=== PATIENT | male | born 1945 | race Two or more races ===

== ENCOUNTER 2022-10-17 14:24 | Inpatient (IN) | payer OTHER ==
[~2022-10-17] VITALS: Ht 162.6 cm; Wt 89.4 kg
[2022-10-17] MEDS ORDERED: GLUMETZA500 MG PO (15:00)
--- NOTE | 2022-10-17 15:00 | NUR ---
SE RECIBE PTE MASCULINO DE 77 ANOS DE EDAD, ALERTA Y ORIENTADO X3 EN COMPANIA DE KEBEDE HIJA QUIEN REFIERE PTE VIENE CON REFERIDO DE INTERNISTA DR.ARCALA TUTTLE QUIEN REFIERE A PTE POR CHF ENTRE OTRAS CONDICIONES DE JOHN PARA EVALUACION, SE HACE EKG Y SE PRESENTA A . SE OBSERVAN AMBAS PIERNAS CON EDEMA.
--- NOTE | 2022-10-17 17:37 | NUR ---
PTE EVALUADO POR DR. AGUILAR SE EJECUTA ORDEN MEDICA Y SE ЮЛИЯ MUESTRA BAJO MEDIDAS ASEPTICAS, SE OREINTA PTE SOBRE TRATAMIENTO PTE REFIERE EMTENDER
== END 2022-10-24 16:04 | disposition home or self-care (01) | DRG 291 ==
LOC: ER 14:24 → MEDI 23:03 → SEC-K 23:03 → MEDJ 23:03 → SEC-K 10-18 05:00 → MEDI 10-18 08:39 → MEDJ 10-23 07:32
PROVIDERS: ADMIT Internal Medicine; ATTEND Internal Medicine
PROC: 4A12X4Z Monitoring of Cardiac Electrical Activity, External Approach (ICD-10-PCS; 2022-10-17)
PROC: 3E0F7SF Introduction of Other Gas into Respiratory Tract, Via Natural or Artificial Opening (ICD-10-PCS; 2022-10-17)
PROC: 3E0F7GC Introduction of Other Therapeutic Substance into Respiratory Tract, Via Natural or Artificial Opening (ICD-10-PCS; 2022-10-17)
PROC: B246ZZZ Ultrasonography of Right and Left Heart (ICD-10-PCS; principal; 2022-10-18)
PROC: BB24ZZZ Computerized Tomography (CT Scan) of Bilateral Lungs (ICD-10-PCS; 2022-10-18)
PROC: BW40ZZZ Ultrasonography of Abdomen (ICD-10-PCS; 2022-10-19)
PROC: 8E0ZXY6 Isolation (ICD-10-PCS; 2022-10-23)
DX: I13.0 Hypertensive heart and chronic kidney disease with heart failure and stage 1 through stage 4 chronic kidney disease, or unspecified chronic kidney disease (principal); I50.23 Acute on chronic systolic (congestive) heart failure; J91.8 Pleural effusion in other conditions classified elsewhere; I31.39 Other pericardial effusion (noninflammatory); N17.8 Other acute kidney failure; L97.819 Non-pressure chronic ulcer of other part of right lower leg with unspecified severity; L03.115 Cellulitis of right lower limb; I42.8 Other cardiomyopathies; E11.628 Type 2 diabetes mellitus with other skin complications; E11.51 Type 2 diabetes mellitus with diabetic peripheral angiopathy without gangrene; E11.22 Type 2 diabetes mellitus with diabetic chronic kidney disease; E11.65 Type 2 diabetes mellitus with hyperglycemia; I25.10 Atherosclerotic heart disease of native coronary artery without angina pectoris; I34.0 Nonrheumatic mitral (valve) insufficiency; N18.9 Chronic kidney disease, unspecified; B96.5 Pseudomonas (aeruginosa) (mallei) (pseudomallei) as the cause of diseases classified elsewhere; B95.2 Enterococcus as the cause of diseases classified elsewhere; B96.89 Other specified bacterial agents as the cause of diseases classified elsewhere; Z20.822 Contact with and (suspected) exposure to COVID-19; Z79.4 Long term (current) use of insulin